=== PATIENT | male | born 1975 | race Caucasian/White ===

== ENCOUNTER 2020-06-16 16:16 | Emergency (ER) | payer OTHER, SELFPAY ==
[~2020-06-16] VITALS: Ht 167.6 cm; Wt 77.1 kg
[2020-06-16 16:21] VITALS: BP 129/72
[2020-06-16] MEDS ORDERED: ACET-8386 PO (18:28)
[2020-06-16] MEDS ORDERED: AZIT250T3 PO (18:28)
[2020-06-16 18:39] VITALS: BP 129/72
== END 2020-06-16 18:39 | disposition home or self-care (01) ==
LOC: MED 16:16
DX: R05 Cough (principal); Z20.822 Contact with and (suspected) exposure to COVID-19; M54.5 Low back pain; Z79.899 Other long term (current) drug therapy
CPT/HCPCS: 71045; 93005; 99285; U0003

== ENCOUNTER 2020-11-10 18:39 | Emergency (ER) | payer OTHER, SELFPAY ==
[~2020-11-10] VITALS: Ht 167.6 cm; Wt 70.3 kg
[~2020-11-10 18:39] MED LIST: ACET-8386 PO; AZIT250T3 PO
[2020-11-10 18:54] VITALS: BP 132/82
--- NOTE | 2020-11-10 20:08 | NUR ---
PATIENT INFORMED ADMITTING STAFF THET HE WILL GO. PATIENT LEFT WITHOUT BEING SEEN BY DR. GONSALVES. NO FURTHER CARE PROVIDED FOR PATIENT.
== END 2020-11-10 20:08 | disposition left against medical advice (07) ==
LOC: MED 18:39
DX: R53.1 Weakness (principal); M79.10 Myalgia, unspecified site; R53.83 Other fatigue; Z53.21 Procedure and treatment not carried out due to patient leaving prior to being seen by health care provider
CPT/HCPCS: 93005; 99281

== ENCOUNTER 2021-04-22 15:50 | Emergency (ER) | payer OTHER, SELFPAY ==
[~2021-04-22] VITALS: Ht 167.6 cm; Wt 77.1 kg
[~2021-04-22 15:50] MED LIST changes: -AZIT250T3 PO
[2021-04-22 16:01] VITALS: BP 148/81
--- NOTE | 2021-04-22 16:07 | NUR ---
DR GARCIA EVALUATING PT AT THIS TIME
--- NOTE | 2021-04-22 16:08 | NUR ---
PT LAC CLEANED WITH 4X4 GAUZE PADS AND WARM WATER. ERMD NOTIFIED.
--- NOTE | 2021-04-22 16:25 | NUR ---
46Y MALE BIB [place] [employer] DUE TO PREBOOK. PT HAS LACERATION ON PALM OF R HAND PMH: DENIES NKA
--- NOTE | 2021-04-22 16:26 | NUR ---
PT AMBULATED TO BED 4 FOR LAC PROCEDURE. ERMD NOTIFIED.
[2021-04-22] MEDS: BACITRACIN OINT 500 UNITS/GM PKT TP ONE (16:30)
[2021-04-22] MEDS: LIDOCAINE/EPI 1% 1:100000 20 ML VIAL INJ ONE (16:36)
--- NOTE | 2021-04-22 16:55 | NUR ---
APPLIED BACITRACIN TO PT'S LAC AND DRESSED WITH NON-ADHERENT AND RADHA ROLL. CMS WNL. ERMD NOTIFIED.
--- NOTE | 2021-04-22 17:02 | NUR ---
PATIENT BIB [place] [employer]. PATIENT EXAMINED BY DR. GARCIA. PATIENT MEDICALLY CLEARED AND RELEASED IN CUSTODY IN STABLE CONDITION. ORIGINAL PRE-BOOK FORM GIVEN TO [employer].
== END 2021-04-22 17:02 ==
LOC: MED 15:50
DX: S61.411A Laceration without foreign body of right hand, initial encounter (principal); Z23 Encounter for immunization; Z02.89 Encounter for other administrative examinations; Z79.899 Other long term (current) drug therapy; W45.8XXA Other foreign body or object entering through skin, initial encounter; Y93.89 Activity, other specified; Y92.89 Other specified places as the place of occurrence of the external cause; Y99.8 Other external cause status
CPT/HCPCS: 12001; 90471; 90715; 99283; J2001

== ENCOUNTER 2023-04-13 20:20 | Emergency (ER) | payer OTHER ==
[~2023-04-13] VITALS: Ht 167.6 cm; Wt 81.6 kg
[~2023-04-13 20:20] MED LIST changes: -ACET-8386 PO; +ACET-8905 PO
[2023-04-13 20:31] VITALS: BP 140/96; PULSE 78; RESP 15; TEMP 99.8; O2SAT 98
[2023-04-13 20:35] VITALS: O2SAT 98
[2023-04-13 21:03] LABS: BASOPHILS # (AUTO) 0.1 K/uL (0.00-0.22); BASOPHILS % (AUTO) 0.6 % (0.0-2.0); EOSINOPHILS # (AUTO) 0.1 K/uL (0-0.4); EOSINOPHILS % (AUTO) 0.9 % (0.0-4.0); HEMATOCRIT 37.7 % (36-52); HEMOGLOBIN 13.3 g/dL (12.0-18.0); LYMPHOCYTES # (AUTO) 1.9 K/uL (2.0-11.5); LYMPHOCYTES % (AUTO) 18.6 % (20.5-51.1); MEAN CORPUSCULAR HEMOGLOBIN 30 pg (27-31); MEAN CORPUSCULAR HGB CONC 35 g/dL (33-37); MEAN CORPUSCULAR VOLUME 84.6 fL (80-94); MONOCYTES # (AUTO) 1.1 K/uL (0.8-1.0); MONOCYTES % (AUTO) 11.4 % (1.7-9.3); NEUTROPHILS # (AUTO) 6.9 K/uL (1.8-7.7); NEUTROPHILS % (AUTO) 68.5 % (42.2-75.2); PLATELET COUNT (AUTO) 276 K/uL (140-450); RED BLOOD CELL COUNT(AUTO) 4.45 MIL/uL (4.20-6.10); RED CELL DISTRIBUTION WIDTH 14.3 % (11.6-13.7)
[2023-04-13 21:10] LABS: ANION GAP 12.1 (8-16); CALCIUM 8.7 mg/dL (8.5-10.1); CARBON DIOXIDE 29.3 mmol/L (21-32); CREATININE 1.1 mg/dL (0.6-1.3); POTASSIUM 3.4 mmol/L (3.5-5.1)
[2023-04-13 21:22] LABS: ALBUMIN 3.3 g/dL (3.4-5.0); BILIRUBIN,DIRECT 0.1 mg/dL (0.0-0.3); TOTAL BILIRUBIN 0.2 mg/dL (0.0-1.0); TOTAL PROTEIN, SERUM 8.2 g/dL (6.4-8.2)
[2023-04-13] MEDS ORDERED: LOPE2TAB52 PO (22:10)
[2023-04-13] MEDS ORDERED: BEN10 PO (22:10)
[2023-04-13] MEDS ORDERED: IBUP-2213 PO (22:10)
[2023-04-13] MEDS ORDERED: ONDA-188 PO (22:10)
[2023-04-13] MEDS: ONDANSETRON 4 MG ODT PO ONE (22:37)
[2023-04-13] MEDS: KETOROLAC 30 MG/ML VIAL IM ONE (22:38)
[2023-04-13] MEDS: LOPERAMIDE 2 MG CAP PO ONE (22:42)
[2023-04-13] MEDS: DICYCLOMINE 10 MG CAP PO ONE (22:42)
== END 2023-04-13 22:58 | disposition home or self-care (01) ==
LOC: MED 20:20
DX: B34.9 Viral infection, unspecified (principal); I25.10 Atherosclerotic heart disease of native coronary artery without angina pectoris; Z79.899 Other long term (current) drug therapy
CPT/HCPCS: 36415; 80048; 80076; 83690; 85025; 96372; 99284; J1885; Q0162

== ENCOUNTER 2023-05-19 18:55 | Emergency (ER) | payer OTHER ==
[~2023-05-19] VITALS: Ht 167.6 cm; Wt 82.6 kg
[~2023-05-19 18:55] MED LIST changes: +BEN10 PO; +IBUP-2213 PO; +LOPE2TAB52 PO; +ONDA-188 PO
[2023-05-19 19:25] VITALS: BP 134/90; PULSE 98; RESP 18; TEMP 98.4; O2SAT 97
[2023-05-19] MEDS ORDERED: ONDANSETRON 4 MG ODT PO ONE (20:20)
[2023-05-19 20:44] LABS: BASOPHILS # (AUTO) 0.1 K/uL (0.00-0.22); BASOPHILS % (AUTO) 0.4 % (0.0-2.0); HEMATOCRIT 43.4 % (36-52); HEMOGLOBIN 14.9 g/dL (12.0-18.0); LYMPHOCYTES # (AUTO) 0.4 K/uL (2.0-11.5); LYMPHOCYTES % (AUTO) 3.2 % (20.5-51.1); MEAN CORPUSCULAR HEMOGLOBIN 29 pg (27-31); MEAN CORPUSCULAR HGB CONC 34 g/dL (33-37); MEAN CORPUSCULAR VOLUME 85.4 fL (80-94); MONOCYTES # (AUTO) 0.4 K/uL (0.8-1.0); MONOCYTES % (AUTO) 3.1 % (1.7-9.3); NEUTROPHILS # (AUTO) 11.7 K/uL (1.8-7.7); NEUTROPHILS % (AUTO) 93.3 % (42.2-75.2); PLATELET COUNT (AUTO) 291 K/uL (140-450); RED BLOOD CELL COUNT(AUTO) 5.08 MIL/uL (4.20-6.10); RED CELL DISTRIBUTION WIDTH 14.3 % (11.6-13.7); WHITE BLOOD COUNT (AUTO) 12.5 K/uL (4.8-10.8)
[2023-05-19 20:45] LABS: FLU A ANTIGEN negative (NEGATIVE); FLU B ANTIGEN NEGATIVE (NEGATIVE)
[2023-05-19] MEDS: ONDANSETRON 4 MG/2 ML VIAL IVP ONE (20:49)
[2023-05-19] MEDS: NACL 0.9% 1,000 ML IV SCH (20:49)
[2023-05-19 21:01] LABS: ANION GAP 15.9 (8-16); CALCIUM 9.3 mg/dL (8.5-10.1); CREATININE 1.2 mg/dL (0.6-1.3); POTASSIUM 3.9 mmol/L (3.5-5.1)
[2023-05-19 21:06] LABS: BILIRUBIN,DIRECT 0.1 mg/dL (0.0-0.3); TOTAL BILIRUBIN 0.7 mg/dL (0.0-1.0); TOTAL PROTEIN, SERUM 8.5 g/dL (6.4-8.2)
[2023-05-19] MEDS ORDERED: METOCLOPRAMIDE 10 MG/2 ML INJ VIAL ONE (21:35)
[2023-05-19] MEDS: METOCLOPRAMIDE 10 MG/2 ML INJ VIAL IVP ONE (21:37)
[2023-05-19 22:34] LABS: APPEARANCE,URINE CLEAR (CLEAR); BILIRUBIN,URINE NEGATIVE (NEGATIVE); BLOOD, URINE TRACE-I (NEGATIVE); COLOR,URINE YELLOW (YELLOW); LEUKOCYTE ESTERASE ,URINE NEGATIVE (NEGATIVE); NITRITE, URINE NEGATIVE (NEGATIVE); PROTEIN,URINE 1+ (NEGATIVE); UGLUCOSE NEGATIVE (NEGATIVE); UROBILINOGEN,URINE 0.2 EU/dL (0.2 - 1)
[2023-05-19 22:42] LABS: BACTERIA,URINE 10-30 (MOD) /HPF (None Seen); MUCUS,URINE 1+ /LPF (None Seen); RBC,URINE 0-5 /HPF (0-5); SQUAMOUS EPITHELIAL CELL,UR 0-3 (FEW) /LPF (0-3 (FEW)); WBC,URINE 0-5 /HPF (0-5)
[2023-05-19] MEDS: DICYCLOMINE 20 MG/2 ML VIAL IM ONE (22:45)
[2023-05-19 22:58] LABS: AMPHETAMINE, URINE NEGATIVE ng/ml (NEG <=1000); BARBITURATE, URINE NEGATIVE ng/ml (NEG <=200); BENZODIAZEPINE, URINE NEGATIVE ng/mL (NEG <=200); CANNABINOID, URINE POSITIVE ng/mL (NEG <=50); COCAINE, URINE NEGATIVE ng/mL (NEG <=300); OPIATE, URINE NEGATIVE ng/mL (NEG <=2000); PHENCYCLIDINE SCREEN,URINE NEGATIVE ng/mL (NEG <=25)
[2023-05-19] MEDS ORDERED: ONDA-188 SL (23:19)
[2023-05-19] MEDS ORDERED: BEN10 PO (23:19)
[2023-05-19 23:33] VITALS: BP 130/79; PULSE 89; RESP 18; TEMP 97.6; O2SAT 100
== END 2023-05-19 23:34 | disposition home or self-care (01) ==
LOC: MED 18:55
DX: R10.9 Unspecified abdominal pain (principal); Z20.822 Contact with and (suspected) exposure to COVID-19; R19.7 Diarrhea, unspecified; R11.2 Nausea with vomiting, unspecified; I25.10 Atherosclerotic heart disease of native coronary artery without angina pectoris; Z79.899 Other long term (current) drug therapy
CPT/HCPCS: 36415; 80048; 80076; 80305; 81001; 83690; 84484; 85025; 87426; 87804; 93005; 96361; 96372; 96374; 96375; 99284; J0500; J2405; J2765; J7030